=== PATIENT | female | born 1995 | race Caucasian/White ===

== ENCOUNTER 2024-02-20 10:26 | Inpatient (IN) | payer BC, SELFPAY ==
[2024-02-20] VITALS (78 sets, daily range): BP systolic 117–142; BP diastolic 61–84; PULSE 62–89; RESP 18; TEMP 36.6–37.2; O2SAT 89–100; BMI 37.0
--- NOTE | 2024-02-20 11:12 | XR_ITS ---
Examination: Complete OB ultrasound greater than 14 weeks Date and time of exam: February 20, 2024 1300 hours INDICATIONS: Pelvic contractions today, labor induction, unknown presentation Findings: Viable intrauterine single fetus with single amniotic sac presentation cephalic spine maternal left Cardiac motion 1:30 BPM Placenta posterior grade 3 Amniotic fluid index 6.2 cm Cervix 3.2 cm Right ovary obscured by bowel gas Cystic left ovary 6.2 x 4.9 cm. Composite estimated gestational age based on BPD, head circumference, abdominal circumference, femur length is 36 weeks 0 days Estimated weight 2009 or 62 g. Survey of intracranial anatomy, spinal anatomy, abdominal anatomy, four-chamber heart performed with no abnormalities identified. Impression: Viable intrauterine gestation cephalic presentation.
[2024-02-20 13:00] LABS: Basophils % (Auto) 0 % (0-2.5); Eosinophils % (Auto) 0 % (0-10); Hematocrit 37.4 % (36.0-46.0); Hemoglobin 12.7 g/dL (12.0-16.0); Immature Granulocytes % (Auto) 0 % (0-0); Immature Granulocytes Auto 0.02 Thou/mm3 (0.00-0.00); Lymphocytes # (Auto) 2.2 Thou/mm3 (1.0-4.8); Lymphocytes % (Auto) 26 % (10-50); Mean Corpuscular Hemoglobin 29.3 pg (25.0-35.0); Mean Corpuscular Volume 86 fL (80-100); Monocytes # (Auto) 0.6 Thou/mm3 (0.0-0.8); Monocytes % (Auto) 7 % (0-12); Neutrophils # (Auto) 5.5 Thou/mm3 (1.8-7.7); Neutrophils % (Auto) 66 % (37-80); Nucleated Red Blood Cell % 0 /100 WBC (0); Platelet Count 177 Thou/mm3 (140-440); RDW Standard Deviation 45.6 fL (36.4-46.3); Red Blood Count 4.33 Miln/mm3 (4.00-5.20); White Blood Count 8.3 Thou/mm3 (3.6-11.0)
[2024-02-20 13:21] LABS: Alanine Aminotransferase 20 U/L (10-49); Albumin, Serum 4.3 gm/dL (3.5-5.0); Albumin/Globulin Ratio 1.5 (1.2-2.2); Alkaline Phosphatase 146 U/L (46-116); Anion Gap 8 (7-16); Aspartate Amino Transferase 26 U/L (0-34); BUN/Creatinine Ratio 15 Ratio (12-20); Bilirubin,Total 0.4 mg/dL (0.3-1.2); Blood Urea Nitrogen 15 mg/dL (9-23); Calcium 9.7 mg/dL (8.3-10.6); Calcium (Corrected) 9.7 mg/dL (8.5-10.1); Carbon Dioxide 19.7 mMol/L (20.0-31.0); Chloride 105 mMol/L (98-107); Globulin 2.8 gm/dL (2.3-3.5); Glucose 91 mg/dL (74-106); Osmolality,Calculated 267 (275-295); Potassium 3.7 mMol/L (3.4-5.1); Sodium 133 mMol/L (136-145); Total Protein 7.1 gm/dL (5.7-8.2); Uric Acid 9.9 mg/dL (3.1-7.8); eGFR > 60 See Note
[2024-02-20 13:28] LABS: Fibrinogen 427 mg/dL (175-375); INR 0.9 (0.9-1.3); Partial Thromboplastin Time 23.1 Seconds (22.0-36.0); Prothrombin Time 10.2 Seconds (9.0-12.2)
[2024-02-20 13:38] LABS: Syphilis Nonreactive (Nonreactive)
[2024-02-20 14:23] LABS: Collection Type, Urine Clean Catch
[2024-02-20 14:37] LABS: Bacteria,Urine Rare; Bilirubin,Urine Negative (Negative); Blood,Urine Negative (Negative); Clarity,Urine Clear (Clear/Hazy); Color,Urine Lt-Yellow (Lt Yel-Yel); Glucose, Urine Negative (Negative); Ketones,Urine Negative (Negative); Leukocyte Esterase,Urine Positive (Negative); Nitrite,Urine Negative (Negative); PH,Urine 5.5 (5.0-7.0); Protein,Urine Negative (Neg - Trace); RBC,Urine 2 /hpf (0-3); Specific Gravity,Urine 1.013 (1.001-1.035); Squamous Epithelial Cell,Urine 3 /hpf (0-5); Urobilinogen,Urine Negative mg/dL (0.0-1.0); WBC,Urine 2 /hpf (0-5)
[2024-02-20] MEDS: DINOPROSTONE 10 MG VAG.SUPP VAGINAL (14:39)
--- NOTE | 2024-02-20 17:59 | PD.LDHP ---
Documentation for date of: 02/20/24 OB Labor/Induct. HPI History of Present Illness Chief complaint: induction : 1 Para: 0 Term pregnancies: 1 pregnancies: 0 Living children: 0 History of Abortions: Spontaneous and Elective: 0 History of Vaginal deliveries: 0 History of sections: No History of : No Date of last menstrual period: 05/20/23 ELIF: 02/24/24 Gestational Age (weeks): 39 Gestational Age (days): 3 Gestational age based on last menstrual period: 39 Indication for induction: medical complication (GDM on diet, CHTN and large ovarian cyst) History of present illness: 28 yo g1po at 39w3 admit for induction of labor. lmp 05/20/23. EDC 02/24/24, followed at [facility] for OB care, first visit was at 10 week 5. first ob sono was 10/07/23, 20 week. confirmed dates. noted to have large ovarian mass, 6.8x4.2 cm, patient was rerered to Dr Prado and oncology in [place]. Malignancy markers were negative. patient showed normal growth. 1 hr gtt was elevated along with 3 hr gtt. sugars have been at goal, diet only, BP have been elevate, OB felt patient was CHTN and not started on medication. Patient is AB+, abs-, rpr;;nr, rub imm, hbsag-, HIV-, hepatitis C-, GC/CT - and gbs negative History of Present Dating criteria: LMP confirmed by 2nd trimester US Adequate Care: Yes Ultrasounds: normal 1st trimester US and normal mid trimester US Obstetrical complications: gestational diabetes and gestational hypertension Medical complications: none Review of Systems Review of Systems Systems Reviewed: All systems reviewed, normal except as documented Past Medical History Surgical History SURGICAL: Negative Section Meds Home Medications and Allergies Allergies Allergy/AdvReac Type Severity Reaction Status Date / Time No Known Allergies Allergy Verified 02/06/24 17:54 OB Exam Physical Exam Vital signs: Temp Pulse Resp BP Pulse Ox 99.0 F 64 18 142/76 H 99 02/20/24 11:20 02/20/24 17:49 02/20/24 11:20 02/20/24 17:49 02/20/24 17:48 Narrative: normal heart rate, lungs closed, gravid abdomen, gynecoid pelvis, sve: FTP/high, medium. BOW intact, FHR category 1 with accels and moderate variability, no UC Detailed Labor and Delivery Exam Dilation (cm): ftp Effacement (%): thick Cervix position: posterior station: -3 Consistency: medium Presentation: Vertex Cervical ripeness score: 2 Membranes: intact Baseline heart rate: 125 monitor accelerations: 15x15 monitor decelerations: None senior living variability: Moderate (11-25) Contraction frequency (min): none Tachysystole: No OB Results Labs 02/20/24 12:36 02/20/24 12:36 Labs: Short CBC 02/20/24 Range/Units 12:36 WBC 8.3 (3.6-11.0) Thou/mm3 Hgb 12.7 (12.0-16.0) g/dL Hct 37.4 (36.0-46.0) % Plt Count 177 (140-440) Thou/mm3 BMP 02/20/24 12:36 Sodium 133 L Potassium 3.7 Chloride 105 Carbon Dioxide 19.7 L BUN 15 Creatinine 1.0 Glucose 91 Calcium 9.7 Liver Function 02/20/24 Range/Units 12:36 Total Bilirubin 0.4 (0.3-1.2) mg/dL AST 26 (0-34) U/L ALT 20 (10-49) U/L Alkaline Phosphatase 146 H (46-116) U/L Albumin 4.3 (3.5-5.0) gm/dL Urine 02/20/24 Range/Units 12:36 Urine Color Lt-Yellow (Lt Yel-Yel) Urine Clarity Clear (Clear/Hazy) Urine pH 5.5 (5.0-7.0) Ur Specific [place] 1.013 (1.001-1.035) Urine Protein Negative (Neg - Trace) Urine Glucose (UA) Negative (Negative) Impressions Impression: IOL for GDM diet and CHTN OB Assessment & Plan Assessment and Plan (1) Normal labor and delivery: Status: Acute Additional Plan Induction method: per misoprostol protocol Plan: induction, anticipate NVD and consult MD grant
[2024-02-21] VITALS (38 sets, daily range): BP systolic 115–146; BP diastolic 59–87; PULSE 53–86; RESP 15–16; TEMP 36.8–37.1
[2024-02-21] MEDS: MISOPROSTOL 50 mCg TABLET PO ×4 (05:48→19:53)
--- NOTE | 2024-02-21 07:35 | PD.LDPN ---
Documentation for date of: 02/21/24 OB Labor Progress Note Pain Control Pain control: tolerating well Pelvic Exam Dilation (cm): 2-3 Effacement (%): 70 station: -2 Amniotic membrane status: Intact Contractions Monitor mode: External Contraction frequency: 6 Contraction duration: 40 Contraction phase: Resting Contraction intensity: Mild Status status: Category l Assessment and Plan Assessment: induction ongoing Plan OB labor note: continuous present management CNM Management MD Consulted (describe details below): Yes
--- NOTE | 2024-02-21 07:48 | XR_ITS ---
Examination: Complete OB ultrasound greater than 14 weeks Date and time of exam: February 21, 2024 0834 hours INDICATIONS: Onset vaginal bleeding beginning this morning Findings: Viable intrauterine single fetus with single amniotic sac presentation cephalic Cardiac motion 144 BPM Placenta fundal grade 3 Umbilical cord insertion seen Amniotic fluid index 1.8 cm spine maternal left Cervix 3.4 cm Ovaries obscured by bowel gas. Composite estimated gestational age based on BPD, head circumference, abdominal circumference, femur length is 39 weeks 0 days Estimated weight 3646 g. Survey of intracranial anatomy, spinal anatomy, abdominal anatomy, four-chamber heart performed with no abnormalities identified. Impression: Viable intrauterine gestation cephalic presentation Estimated gestational age 39 weeks 0 days Amniotic fluid index 1.8 cm.
--- NOTE | 2024-02-21 09:18 | CHAP ---
Patient expressed gratitude for visit and prayer.
[2024-02-22] VITALS (25 sets, daily range): BP systolic 115–137; BP diastolic 64–85; PULSE 52–82; RESP 18; TEMP 36.6–37; O2SAT 100; BMI 37.0
[2024-02-22] MEDS: Ampicillin Inj 2,000 MG in SODIUM CHLORIDE 0.9% (P) 100 ML 100 MG IV (02:22)
[2024-02-22] MEDS: RINGERS LACTATED 1000 ML 1,000 ML 125 ML IV ×3 (02:22→17:52)
[2024-02-22] MEDS: OXYTOCIN in NS 30 units 30 UNIT/500 ML BAG IV (02:23)
[2024-02-22] MEDS: Ampicillin Inj 1,000 MG in SODIUM CHLORIDE 0.9% (P) 50 ML 50 MG IV ×4 (06:29→19:13)
--- NOTE | 2024-02-22 16:50 | PD.LDPN ---
Documentation for date of: 02/22/24 OB Labor Progress Note Pain Control Pain control: tolerating well Pelvic Exam Dilation (cm): 3 Effacement (%): 80 station: -2 Amniotic membrane status: Intact Contractions Monitor mode: External Contraction frequency: 6 Contraction duration: 60 Contraction phase: Resting Contraction intensity: Mild Status status: Category l Assessment and Plan Pitocin rate (mU/min): 13 CNM Management MD Consulted (describe details below): Yes
[2024-02-23] VITALS (30 sets, daily range): BP systolic 106–144; BP diastolic 55–100; PULSE 58–112; RESP 7–19; TEMP 36.6–37.1; O2SAT 93–100
[2024-02-23] MEDS: Ampicillin Inj 1,000 MG in SODIUM CHLORIDE 0.9% (P) 50 ML 50 MG IV (00:39)
--- NOTE | 2024-02-23 03:36 | PC.NURSE ---
1920: During my initial encounter with patient, casualty underwriter was explaining expectations of labor, pain control options, poc to increase oxytocin to 20 mu/min, pt was currently on 18mu. After reaching 20 mu/min, casualty underwriter would monitor for few hrs poss. [id number], recheck sve. If no cervical change noted, poss. of oxytocin break a few hrs and restarting in the morning. Pt verbalized understanding. Pt, spouse and mother at bedside, explained to casualty underwriter that she was not agreeable to this induction initially, but d/t Dr Clifford being adament in doing it, they agreed to come in. Pt stated she felt like alot of things have gone wrong since induction started. explained to casualty underwriter that since arrival, a nurse strippped her membranes without consent, after cervidil placement, she was celeste every minute with increased of pain and increased of mucous discharge and vaginal bleeding. Cooker Mechanic explained to patient and family the expectations of labor w/ ripening agents vs. stimulants, increase of bloody show as she progresses in labor, cervical exams, and D/T co-morbidities noted with - GDM, GHTN is prob. the reason why the provider recommended IOL. Pt questions whether a poss. of stopping induction, delaying it was an option. Cooker Mechanic explained that when there are on sign. pt. hx, sometimes failed inductions go home and come back in a few days, but d/t to her hx. that might not be an option. That is something she would have to speak to with her providers. Pt and family verbalized understanding.
--- NOTE | 2024-02-23 03:55 | PC.NURSE ---
2005: Pt. aware that show card writer reached out to Dr Hernandez, he was made aware of POC and orders by CHAO Farooq and agreeable to poc, but requested for NPO at midnight. D/T low GARFIELD, pt to remain on cont. F.M. and fluids. Pt and spouse concerned about bloody show. Pt noted small amount of blood show with mucous discharge. all questions and concerns answered, Pt and family agreeable with POC.
[2024-02-23] MEDS: ceFAZolin/D5W 2 GM IV 2 GM/100 ML BAG IV (08:06)
[2024-02-23] MEDS: METOCLOPRAMIDE INJ 5 MG/ML VIAL 2 ML 10 MG IVP (08:07)
[2024-02-23] MEDS: FAMOTIDINE INJ 10 MG/ML VIAL 2 ML 20 MG IV (08:07)
[2024-02-23] MEDS: CITRIC ACID/SODIUM CITR 15 ML UDC (BICITRA) 30 ML PO (08:07)
--- NOTE | 2024-02-23 08:26 | PD.LDPN ---
Documentation for date of: 02/23/24 OB Labor Progress Note Pelvic Exam Dilation (cm): 3 Effacement (%): 80 station: -2 Amniotic membrane status: Intact Contractions Monitor mode: External Contraction frequency: 6 Contraction phase: Resting Contraction intensity: Mild Status status: Category l Assessment and Plan Comments: I was given a signout from the previous on-call physician that patient desires primary low-transverse . On conversation with the patient I confirmed her desire. Patient is being induced for gestational hypertension and GDM diet-controlled and has been here for 48 hours showed no significant cervical change after 1 round of Cytotec, Cervidil, Pitocin patient has a plan and patient has been demanding to have Pitocin run at the base she wants and she did not want to have amniotomy. patient declines to get any neuraxial anesthesia and would rather prefer to be under general anesthesia. Patient already had a conversation with pediatric team regarding what are the consequences of general anesthesia for the baby and still requests for the same. Patient during her exam at 20 weeks was discovered to have a large ovarian cyst around 6 to 7 cm which was complex and got consultation with SIGN HANGER SUPERVISOR oncology. Tumor markers were done which were negative and per her SIGN HANGER SUPERVISOR oncology note mass is more likely benign and malignant. Patient desires removal of the mass. I mentioned the patient that cystectomy rather than oophorectomy as a standard of care however if pathology confirms any malignancy she will need a second surgery and patient is agreeable to the same. Also in case of injury to the ovary oophorectomy is a possibility patient was also informed that in case the ovarian cyst has shrunk then it can be done after 6 weeks where vascularity has decreased. Patient appears to understand the conversation and risks of including infection, hemorrhage, injury to neighboring organ. Patient desires transverse incision and understands that extension might be possible in case of large ovarian cyst
[2024-02-23] MEDS: OXYTOCIN in NS 20 units 20 UNIT/1,000 ML BAG 125 UNIT IV ×2 (09:35→17:47)
[2024-02-23] MEDS: MORPHINE SULF 1 MG/ML PCA SYRINGE 30 ML PCA (12:27)
[2024-02-23 13:18] LABS: Basophils % (Auto) 0 % (0-2.5); Eosinophils % (Auto) 0 % (0-10); Hematocrit 31.8 % (36.0-46.0); Hemoglobin 10.8 g/dL (12.0-16.0); Immature Granulocytes % (Auto) 0 % (0-0); Immature Granulocytes Auto 0.03 Thou/mm3 (0.00-0.00); Lymphocytes # (Auto) 1.6 Thou/mm3 (1.0-4.8); Lymphocytes % (Auto) 16 % (10-50); Mean Corpuscular Hemoglobin 29.8 pg (25.0-35.0); Mean Corpuscular Volume 88 fL (80-100); Monocytes # (Auto) 0.6 Thou/mm3 (0.0-0.8); Monocytes % (Auto) 6 % (0-12); Neutrophils # (Auto) 7.9 Thou/mm3 (1.8-7.7); Neutrophils % (Auto) 77 % (37-80); Nucleated Red Blood Cell % 0 /100 WBC (0); Platelet Count 167 Thou/mm3 (140-440); Red Blood Count 3.63 Miln/mm3 (4.00-5.20); White Blood Count 10.2 Thou/mm3 (3.6-11.0)
--- NOTE | 2024-02-23 16:47 | PD.LDDELS ---
Data ([place]) Data Hx Section: No : 1 Para: 0 Term: 0 : 0 : 0 Delivery Data (Moore) Labor Data Induction: Yes ROM Date: 02/23/24 ROM Time: 08:44 Rupture Type: AROM Amniotic Fluid: Clear Delivery Data Labor Onset Stage 1 Date: 02/23/24 Labor Onset Stage 1 Time: 08:47 Labor Onset Stage 2 Date: 02/23/24 Labor Onset Stage 2 Time: 08:47 Delivery Date: 02/23/24 Delivery Time: 08:47 Gestational age (weeks): 39 Gestational age (days): 4 Placenta Delivery Date: 02/23/24 Placenta Delivery Time: 08:48 Delivered by: Florina Clifford Delivery nurse: Genevieve Schumacher Other staff at delivery: Nursery Nurse Other staff at delivery: Scrub Other staff at delivery: Baby Care/Riveting Machine Operator Tape Control Other staff at delivery: Luly Sepulveda Other staff at delivery: Lela Pederson Other staff at delivery: Delivery Method Delivery: Delivery Type: Primary Anesthesia Type Primary Anesthesia: General Secondary Anesthesia: None Delivery Room Medications Intrapartum Medications: Antibiotics Placenta Placenta Delivery: Manual EBL Estimated blood loss (ml): 400 Umbilical Cord Umbilical Vessels: 3 Nuchal Cord: None Body Cord: None [place] Data ([place]ore) Data Infant Gender: Female Infant Weight Grams: 3390 1 Minute Total: 9 5 Minute Total: 9
--- NOTE | 2024-02-23 16:49 | PD.GYNPROC ---
Operative Note - NIGHT SUPERVISOR Procedure Date of procedure: 02/23/24 Procedure Performed: Primary low-transverse for patient desires Gestational hypertension Gestational diabetes diet-controlled Indication: Elective Pre-Op diagnosis: Same Post-Op diagnosis: Same Anesthesia type: General Procedure description: informed consent was obtained and the patient was taken to the operating room.? Identity was confirmed by double identifiers and she was placed on the operating table.The abdomen and perineum were prepped in the usual sterile fashion and a Piña catheter was placed to continuous drainage.? Sterile drapes were applied.??A Pfannenstiel skin incision was made with a scalpel and carried to the subcutaneous fat up to the rectus fascia.? The rectus fascia was incised on either side of the midline and the incisions were extended bilaterally.? The fascia was gently dissected off the ventral surface of the rectus muscle both superiorly and inferiorly. Carefully a peritioneal window created and after ruling out adhesion of bowel and bladder it was extended . The baby was cephalic position stuck deep in pelvis, during extraction of head from the pelvis the baby turned and therefore was delivered via breech extraction. The umbilical cord , was doubly clamped, divided and the was handed over to the waiting team.cord blood and segment obtained. ? placenta delivered by controlled cord traction . The interior of the uterus was now thorougly cleaned of all blood and debris and membranes.? The? hysterotomy was closed using 0 vicryl suture in double layers. Once the repair was completed the hysterotomy was inspected, was noted to be adequately hemostatic . Muscle oozing stopped by bovie. The rectus fascia was repaired using Vicry 0 in a running fashion.? The subcutaneous layer was now, approximated with 3-0 vicryl in double layers.? All bleeding points were cauterized using the Bovie.?The skin was closed using 4-0 Monocryl in a subcuticular fashion.? The skin was cleaned and a sterile dressing was applied. The patient was now undraped, the abdomen and back were thoroughly cleaned and she was now transferred to the recovery room in a stable Estimated blood loss (ml): 400 Surgical staff Operation Date: 02/23/24 08:41 Case Staff NURSE ANESTHESIA PROGRAM DIRECTOR: Osiel Love RN First Assistant: Lela Pederson Diagnosis Problem List Completed Was Problem List Reviewed/Reconciled?: Yes
--- NOTE | 2024-02-23 16:50 | PD.LDDELS ---
Data ([place]) Data Hx Section: No : 1 Para: 0 Term: 0 : 0 : 0 Delivery Data ([place]ore) Labor Data Induction: Yes ROM Date: 02/23/24 ROM Time: 08:44 Rupture Type: AROM Amniotic Fluid: Clear Delivery Data Labor Onset Stage 1 Date: 02/23/24 Labor Onset Stage 1 Time: 08:47 Labor Onset Stage 2 Date: 02/23/24 Labor Onset Stage 2 Time: 08:47 Delivery Date: 02/23/24 Delivery Time: 08:47 Gestational age (weeks): 39 Gestational age (days): 4 Placenta Delivery Date: 02/23/24 Placenta Delivery Time: 08:48 Delivered by: Florina Clifford Delivery nurse: Genevieve Schumacher Other staff at delivery: Nursery Nurse Other staff at delivery: Scrub Other staff at delivery: Baby Care/Vp Cardiovascular Service Line Other staff at delivery: Luly Sepulveda Other staff at delivery: Lela Pederson Other staff at delivery: Delivery Method Delivery: Delivery Type: Primary Anesthesia Type Primary Anesthesia: General Secondary Anesthesia: None Delivery Room Medications Intrapartum Medications: Antibiotics Placenta Placenta Delivery: Manual EBL Estimated blood loss (ml): 400 Umbilical Cord Umbilical Vessels: 3 Nuchal Cord: None Body Cord: None [place] Data ([facility]) Data Infant Gender: Female Infant Weight Grams: 3390 1 Minute Total: 9 5 Minute Total: 9
[2024-02-24] VITALS (7 sets, daily range): BP systolic 119–136; BP diastolic 79–88; PULSE 70–86; RESP 16–19; TEMP 36.7–37.6; O2SAT 95–98
[2024-02-24] MEDS: ACETAMINOPHEN 325 MG TABLET 650 MG PO (05:18)
--- NOTE | 2024-02-24 10:08 | PD.LDPPPRG ---
Subjective Subjective Interval history: Delivery type: Patient doing well this morning. No acute complaints. Ambulating, tolerating p.o. and voiding without difficulty. HTN/Pre-Eclampsia screen: No chest pain, shortness of breath, headache, visual changes, epigastric or right upper quadrant pain. Breast-feeding, lochia diminishing. Bowel: Flatus+/ BM+ Exam Vital Signs Temp Pulse Resp BP Pulse Ox O2 Del Method O2 Flow Rate 98.4 F 73 16 119/79 95 Room Air 1 02/24/24 07:39 02/24/24 07:39 02/24/24 07:39 02/24/24 07:39 02/24/24 07:39 02/24/24 07:39 02/23/24 20:35 Constitutional Constitutional: no acute distress Routine HEENT Exam Head: Present normocephalic and atraumatic Eye: Present EOMI and PERRL ENT: Present mucous membranes moist Routine Neck Exam Neck: Present supple and trachea midline Routine Respiratory Exam Respiratory: Present chest non-tender, lungs clear, normal breath sounds and no resp distress Routine Cardiovascular Exam Cardiovascular: Present RRR Routine Abdominal Exam Abdominal: Present soft and normoactive bowel sounds Routine Extremities Exam Extremities: Present full ROM Routine Skin Exam Skin: Present intact, dry and warm Routine Neurological Exam Neurological: Present alert, oriented X3 and CN II-XII intact Routine Psychiatric Exam Psychiatric: Present normal affect and normal thought process Objective Labs 02/23/24 13:00 02/20/24 12:36 Labs: Laboratory Results - last 24 hr 02/23/24 13:00 WBC 10.2 RBC 3.63 L Hgb 10.8 L Hct 31.8 L MCV 88 MCH 29.8 MCHC 34.0 RDW Std Deviation 47.0 H Plt Count 167 Neut % (Auto) 77 Lymph % (Auto) 16 [place] % (Auto) 6 Eos % (Auto) 0 Baso % (Auto) 0 Neut # (Auto) 7.9 H Lymph # (Auto) 1.6 [place] # (Auto) 0.6 Eos # (Auto) 0.0 Baso # (Auto) 0.0 Immature Gran # (Auto) 0.03 H Absolute Nucleated RBC 0.00 Immature Gran % 0 Nucleated RBC % 0 Assessment & Plan Problem List (1) Normal labor and delivery: Status: Acute (2) delivery delivered: Status: Acute Assessment and plan: 1. Continue routine /post-op care 2. Labs reviewed, cbc appropriate 3. Remove dressing/Piña 4. Encourage to ambulate, shower 5. Encourage PO intake, breast feeding Time Spent With Patient Time: Total time spent is greater than 50% in coordination of care (as documented) at patient's floor/unit and/or counseling patient:
[2024-02-24] MEDS: IBUPROFEN TAB 400 MG TABLET 800 MG PO (12:17)
--- NOTE | 2024-02-24 14:34 | PC.SS ---
SIGNAL SYSTEM TESTING MAINTAINER conducted bedside contact with the patient to address nursing referral indicating patient possessed history of anxiety. SIGNAL SYSTEM TESTING MAINTAINER introduced self, role and basis of referral. Present with patient at bedsides was patient?s mother. Patient gave permission for mother to remain during discussion. Patient confirmed history of anxiety. Per patient, level of anxiety is not impairing daily functioning. Patient not prescribed medication to address level of anxiety. Patient reports no history of mental health services. Patient employed multimedia programmer. Patient resides with [facility]. [place], Ewelina; is the patient?s first child. delivered via . OB services provided by Dr. Clifford. Patient not aligned with WIC, SNAP nor TANF. Patient denies history of alcohol/drug abuse. Patient denies CWS intervention. Patient denies episodes of domestic violence. Patient plans on breast feeding the . Patient has access to appropriate supplies and equipment; to include a car seat. FOB will provide transportation upon discharge. Patient describes possessing support system consisting of parents and extended family. SIGNAL SYSTEM TESTING MAINTAINER provided the patient with community resources to include [facility]ing Network and Warm Line. No further intervention required at this time, social media marketing analyst will be available to address any further concerns. SIGNAL SYSTEM TESTING MAINTAINER updated bedside nurse.
[2024-02-25] MEDS: ACETAMINOPHEN 325 MG TABLET 650 MG PO ×2 (00:48→08:19)
[2024-02-25 03:57] VITALS: BP 131/84; PULSE 63; RESP 20; TEMP 36.7; O2SAT 98
[2024-02-25 08:01] VITALS: BP 143/95; PULSE 69; RESP 16; TEMP 36.8; O2SAT 98
[2024-02-25 08:19] VITALS: TEMP 36.8
--- NOTE | 2024-02-25 09:04 | PD.LDPPPRG ---
Subjective Subjective Interval history: Patient at bedside. Afebrile, tolerating p.o., ambulating, voiding, positive bowel movements Denies headache, vision changes, right upper quadrant or epigastric pain Exam Vital Signs Temp Pulse Resp BP Pulse Ox O2 Del Method O2 Flow Rate 98.3 F 69 16 143/95 H 98 Room Air 1 02/25/24 08:19 02/25/24 08:01 02/25/24 08:01 02/25/24 08:01 02/25/24 08:01 02/25/24 08:01 02/23/24 20:35 Routine Abdominal Exam Comments: Soft, appropriate tender. Uterus firm, below the umbilicus. Incision clean, dry, intact Routine Exam Comments: Lochia similar to menses Routine Extremities Exam Comments: Homans' sign negative Objective Labs 02/23/24 13:00 02/20/24 12:36 Assessment & Plan Problem List (1) Normal labor and delivery: Status: Acute (2) delivery delivered: Status: Acute Assessment Comment Assessment comment: 28-year-old status post primary at term. History of gestational hypertension, blood pressures in the mild to normal range. Denies preeclamptic symptoms. Postop day 2 Plan Comment Plan Comment: Routine care. DC home if stable Time Spent With Patient Time: Total time spent is greater than 50% in coordination of care (as documented) at patient's floor/unit and/or counseling patient:
--- NOTE | 2024-02-25 09:06 | PD.LDDS ---
DS: Providers Provider Date of admission: 02/20/24 10:26 Primary care physician: Physician No Primary/Family Admitting Provider: Alessandro Hernandez MD Attending Provider on Admission: Guerrero Marshall MD Consults: 02/23/24 08:32 Referral Routine Comment: Attending Provider on DC: Alessandro Hernandez MD Discharging Provider: Alessandro Hernandez MD DS: Diagnosis Problem List Completed Was Problem List Reviewed/Reconciled?: Yes Summary/Hosp Course Brief History: 28 yo in for induction of labor due to gestational hypertension and had primary at term. Her postop course was unremarkable and on postop day 2 she was discharged home Peripartum Data Delivery Method: Low Transverse Procedures: Procedures Operation Date: 02/23/24 08:41 Actual Procedure Side Surgeon p in OB Not Applicable Florina Clifford MD Time Spent with Patient Time attestation: Total time spent providing and/or coordinating discharge services: Exam Vital Signs Temp Pulse Resp BP Pulse Ox O2 Del Method O2 Flow Rate 98.3 F 69 16 143/95 H 98 Room Air 1 02/25/24 08:19 02/25/24 08:01 02/25/24 08:01 02/25/24 08:01 02/25/24 08:01 02/25/24 08:01 02/23/24 20:35 Discharge Plan Plan Patient Disposition: HOME (Self Care) Prescriptions/Referrals Prescriptions/Med Rec: New acetaminophen 325 mg Tablet 650 mg PO Q6H 7 Days Qty: 56 0RF ibuprofen 400 mg Tablet 800 mg PO Q8H 7 Days Qty: 21 0RF Discontinued aspirin [Thelma Low Dose Aspirin] 81 mg Tablet,Delayed Release (Dr/Ec) 81 mg PO DAILY Referrals: Florina Clifford MD [Physician] - (1 week) No Primary/Family,Physician [Primary Care Provider] - Patient/Caregiver Discharge Instructions Education Materials: C Section Dc Print Language: Kinyarwanda Stand Alone Forms: Kassie Award Info., Patient Portal Info Letter Discharge Order Discharge Orders: Discharge (Routine); Ordered 02/25/24 Ordered By: Alessandro Hernandez Planned Discharge Date 02/25/24
[2024-02-25 10:31] VITALS: BP 139/94; PULSE 65; RESP 17; TEMP 36.8; O2SAT 98
--- NOTE | 2024-02-25 10:34 | PD.LDDS ---
DS: Providers Provider Date of admission: 02/20/24 10:26 Primary care physician: Physician No Primary/Family Admitting Provider: Alessandro Hernandez MD Attending Provider on Admission: Guerrero Marshall MD Consults: 02/23/24 08:32 Referral Routine Comment: Attending Provider on DC: Alessandro Hernandez MD Discharging Provider: Alessandro Hernandez MD DS: Diagnosis Problem List Completed Was Problem List Reviewed/Reconciled?: Yes Summary/Hosp Course Brief History: 28 yo in for induction of labor due to gestational hypertension and had primary at term. Her postop course was unremarkable and on postop day 2 she was discharged home Peripartum Data Delivery Method: Low Transverse Procedures: Procedures Operation Date: 02/23/24 08:41 Actual Procedure Side Surgeon p in OB Not Applicable Florina Clifford MD Time Spent with Patient Time attestation: Total time spent providing and/or coordinating discharge services: Exam Vital Signs Temp Pulse Resp BP Pulse Ox O2 Del Method O2 Flow Rate 98.3 F 65 17 139/94 H 98 Room Air 1 02/25/24 10:31 02/25/24 10:31 02/25/24 10:31 02/25/24 10:31 02/25/24 10:31 02/25/24 10:31 02/23/24 20:35 Discharge Plan Plan Patient Disposition: HOME (Self Care) Prescriptions/Referrals Prescriptions/Med Rec: New acetaminophen 325 mg Tablet 650 mg PO Q6H 7 Days Qty: 56 0RF ibuprofen 400 mg Tablet 800 mg PO Q8H 7 Days Qty: 21 0RF nifedipine 30 mg Tablet Extended Release 24hr 30 mg PO QDAY 30 Days Qty: 30 0RF Discontinued aspirin [Thelma Low Dose Aspirin] 81 mg Tablet,Delayed Release (Dr/Ec) 81 mg PO DAILY Referrals: Florina Clifford MD [Physician] - (1 week) No Primary/Family,Physician [Primary Care Provider] - Patient/Caregiver Discharge Instructions Education Materials: C Section Dc Print Language: Occitan Stand Alone Forms: Kassie Award Info., Patient Portal Info Letter Discharge Order Discharge Orders: Discharge (Routine); Ordered 02/25/24 Ordered By: Alessandro Hernandez Planned Discharge Date 02/25/24
[2024-02-25 11:02] VITALS: BP 139/94; PULSE 65
[2024-02-25] MEDS: NIFEdipine XL 30 MG TABCR PO (11:02)
--- NOTE | 2024-02-25 12:18 | PC.NURSE ---
Patient discharged home with spouse, discharge education and medications for mom and reviewed. Precautions explained to patient including reasons to return to hospital. Patient instructed to follow up with OB at next scheduled appt next week for b/p check up. Patient verbalizes understanding, all questions answered and encouraged.
== END 2024-02-25 12:10 | disposition home or self-care (01) | DRG 788 ==
LOC: S4SX 02-23 08:26 → S4NX 02-23 08:50
PROVIDERS: Advanced Practice Midwife; Student in an Organized Health Care Education/Training Program; Admitting Provider Obstetrics & Gynecology; Visit Provider Obstetrics & Gynecology
PROC: 10D00Z1 Extraction of Products of Conception, Low, Open Approach (ICD-10-PCS; CPT 59514; principal; 2024-02-23 08:00)
DX: O13.4 Gestational [pregnancy-induced] hypertension without significant proteinuria, complicating childbirth (principal); Z37.0 Single live birth; Z3A.39 39 weeks gestation of pregnancy; O32.1XX0 Maternal care for breech presentation, not applicable or unspecified; O34.83 Maternal care for other abnormalities of pelvic organs, third trimester; N83.202 Unspecified ovarian cyst, left side
CPT/HCPCS: 36415; 59409; 76805; 80053; 81001; 84550; 85025; 85384; 85610; 85730; 86780; 86850; 86900; 86901; 94762; A4649; J0290; J0689; J1885; J2250; J2270; J2405; J2590; J2704; J2765; J3010; J3490; J7050; J7120; A9270; J0690; J1596

== ENCOUNTER 2024-04-04 10:57 | Emergency (ER) | payer BC, SELFPAY ==
[2024-04-04 12:46] VITALS: BP 133/78; PULSE 122; RESP 18; TEMP 38.9; O2SAT 99; BMI 33.1
--- NOTE | 2024-04-04 12:49 | PD.EDRME ---
Rapid Medical Screening Exam RME Arrival date/time: 04/04/24 10:57 Chief Complaint: Urogenital-Female Time Seen by Provider: 04/04/24 11:59 Vital signs: Vital Signs Temperature 102.1 F H 04/04/24 12:46 Pulse Rate 122 H 04/04/24 12:46 Respiratory Rate 18 04/04/24 12:46 Blood Pressure 133/78 H 04/04/24 12:46 Pulse Oximetry (%) 99 04/04/24 12:46 Oxygen Delivery Method Room Air 04/04/24 12:46 RME Narrative: 29-year-old female patient presents emergency department with complaint of fever, pain with urination, x 2 days. Patient also states that she is 5 weeks via delivery. Patient is febrile and tachycardic.
--- NOTE | 2024-04-04 12:51 | XR_ITS ---
Examination: PA lateral chest 2 views Technique: Upright PA lateral chest 2 views Exam date and time: April 04, 2024 1306 hrs. Indications: Fever pain with urination beginning 2 days ago Findings: Normal heart size No lobar pneumonia No pulmonary edema The osseous structures are intact with mild kyphosis dorsal spine Impression: No lobar pneumonia identified
[2024-04-04 12:57] VITALS: TEMP 38.9
[2024-04-04] MEDS: ACETAMINOPHEN 500 MG TABLET 1000 MG PO (12:57)
[2024-04-04 13:31] LABS: Lactate (Lactic Acid) 0.8 mMol/L (0.4-2.0)
[2024-04-04 13:34] LABS: Basophils % (Auto) 0 % (0-2.5); Eosinophils % (Auto) 0 % (0-10); Hematocrit 37.4 % (36.0-46.0); Hemoglobin 12.3 g/dL (12.0-16.0); Immature Granulocytes % (Auto) 0 % (0-0); Immature Granulocytes Auto 0.01 Thou/mm3 (0.00-0.00); Lymphocytes # (Auto) 1.6 Thou/mm3 (1.0-4.8); Lymphocytes % (Auto) 18 % (10-50); Mean Corpuscular HGB Conc 32.9 g/dl (31.0-37.0); Mean Corpuscular Volume 88 fL (80-100); Monocytes # (Auto) 0.4 Thou/mm3 (0.0-0.8); Monocytes % (Auto) 5 % (0-12); Neutrophils % (Auto) 78 % (37-80); Nucleated Red Blood Cell % 0 /100 WBC (0); Platelet Count 214 Thou/mm3 (140-440); Red Blood Count 4.24 Miln/mm3 (4.00-5.20); White Blood Count 9.1 Thou/mm3 (3.6-11.0)
[2024-04-04 13:52] LABS: B-Type Natriuretic Peptide 27 pg/mL (0-100)
[2024-04-04 13:53] LABS: Alanine Aminotransferase 35 U/L (10-49); Albumin, Serum 4.7 gm/dL (3.5-5.0); Albumin/Globulin Ratio 1.9 (1.2-2.2); Alkaline Phosphatase 85 U/L (46-116); Anion Gap 11 (7-16); Aspartate Amino Transferase 24 U/L (0-34); BUN/Creatinine Ratio 10 Ratio (12-20); Bilirubin,Total 0.4 mg/dL (0.3-1.2); Blood Urea Nitrogen 9 mg/dL (9-23); Calcium 9.1 mg/dL (8.3-10.6); Calcium (Corrected) 9.1 mg/dL (8.5-10.1); Carbon Dioxide 23.5 mMol/L (20.0-31.0); Chloride 103 mMol/L (98-107); Creatinine (Component) 0.9 mg/dL (0.6-1.3); Estimated Creatinine Clearance 96.9 mL/min (>60); Globulin 2.5 gm/dL (2.3-3.5); Glucose 139 mg/dL (74-106); Lipase 29 U/L (12-53); Osmolality,Calculated 274 (275-295); Potassium 3.4 mMol/L (3.4-5.1); Sodium 137 mMol/L (136-145); Total Protein 7.2 gm/dL (5.7-8.2); eGFR > 60 See Note
[2024-04-04 15:09] VITALS: BP 110/65; PULSE 83; RESP 16; TEMP 37.2; O2SAT 98
[2024-04-04 15:20] LABS: Collection Type, Urine Clean Catch; RBC,Urine 0 /hpf (0-3)
--- NOTE | 2024-04-04 15:32 | EDNOTE_ITS ---
ED Female Urogenital RME/HPI General Chief complaint: Urogenital-Female Stated complaint: SMELLY URINARY DISCHARGE POST C-SECT X 5WKS Time Seen by Provider: 04/04/24 11:59 Arrival date/time: 04/04/24 10:57 This is a 29-year-old female that comes in with complaints of runny nose, body aches and fever that started 3 days ago. Patient reports that she had a C- section on 02/23/2024. Per patient everything went well. Incision appears to be healing with no issues. Patient reports some lower abdominal cramping but does not have any abdominal pain or lower pelvic pain. Patient states that she has mild mucousy discharge but no pain. Patient's [facility] was . Patient denies urinary symptoms. Patient denies for nausea, vomiting, diarrhea. Patient reports history of gestational diabetes. RME / HPI RME / HPI Narrative: 29-year-old female patient presents emergency department with complaint of fever, pain with urination, x 2 days. Patient also states that she is 5 weeks via delivery. Patient is febrile and tachycardic. Related Data Allergies Allergy/AdvReac Type Severity Reaction Status Date / Time No Known Allergies Allergy Verified 04/04/24 10:59 Review of Systems Review of Systems Systems Reviewed: All systems reviewed, normal except as documented Past Medical History Surgical History SURGICAL: Negative Section ED Exam General General appearance: Present alert and in no apparent distress Head Head exam: Present atraumatic Eye Eye exam: Present normal appearance, PERRL and EOMI ENT ENT exam: Present normal exam, normal oropharynx and mucous membranes moist Neck Neck exam: Present normal inspection, full ROM and trachea midline Chest Chest inspection: Present normal inspection and symmetric chest wall rise Respiratory Respiratory exam: Present normal lung sounds bilaterally Cardiovascular Cardiovascular exam: Present regular rate, normal rhythm and normal heart sounds Abdominal Exam Abdominal exam: Present soft Extremities Exam Extremities exam: Present normal inspection and full ROM Back Exam Back exam: Present normal inspection and full ROM Neurological Exam Neurological exam: Present alert, oriented X3 and CN II-XII intact Psychiatric Psychiatric exam: Present normal affect and normal mood Skin Skin exam: Present warm, dry, intact and other (c section scar healing well, no drainage, redness or swelling ) Course Quality Measures none Orders Category Date Time Status Bedside COVID-19 Antigen Test NOW Care 04/04/24 12:51 Completed Bedside Influenza A&B Antigen Test NOW Care 04/04/24 12:52 Completed XR chest 2V Stat Exams 04/04/24 12:51 Completed BNP [B-Type Natriuretic Peptide] Stat Lab 04/04/24 13:21 Completed Blood Culture (Lab) Stat Lab 04/04/24 13:21 Completed CBC [CBC] Stat Lab 04/04/24 13:21 Completed CMP [Comprehensive Metabolic Panel] Stat Lab 04/04/24 13:21 Completed Lactic Acid [Lactate (Lactic Acid)] Stat Lab 04/04/24 13:21 Completed Lipase Stat Lab 04/04/24 13:21 Completed Urinalysis Stat Lab 04/04/24 15:12 Completed Urine Culture Stat Lab 04/04/24 15:12 Completed Acetaminophen Tab [Tylenol ES Tab] Med 04/04/24 12:51 Discontinued 1,000 mg PO X1 ONE Ketorolac Inj [Toradol Inj] Med 04/04/24 12:51 Discontinued 30 mg IVP X1 ONE cefTRIAXone [Rocephin] Med 04/04/24 12:51 Discontinued 1,000 mg IV X1 ONE Vital Signs Vital signs: Vital Signs Temperature 102.1 F H 04/04/24 12:46 Pulse Rate 122 H 04/04/24 12:46 Respiratory Rate 18 04/04/24 12:46 Blood Pressure 133/78 H 04/04/24 12:46 Pulse Oximetry (%) 99 04/04/24 12:46 Oxygen Delivery Method Room Air 04/04/24 12:46 Urogenital - Female MDM Narrative MDM Narrative:: Denies abdominal pain. Denies pain to palpation to abdomen and pelvic area. chest x ray: Findings: Normal heart size No lobar pneumonia No pulmonary edema The osseous structures are intact with mild kyphosis dorsal spine Impression: No lobar pneumonia identified Influenza and COVID-negative. Labs show a white count of 9.1, hemoglobin 12.3 with a hematocrit of 37.4 platelet count of 214, BMP glucose of 139 lactic acid 0.8. Consulted [address] Cory GRISSOM. I let them know that patient not having any abdominal pain any abdominal or lower pelvic tenderness. He does not suspect endometriits at this time. He stated patient can follow-up with her [employer] [facility] next week. Come back to the emergency room if symptoms change or worsen. Patient had antibiotics ordered earlier by previous provider. Patient does not want antibiotics at this time. Patient data External records reviewed:: [facility] previous records Clinical information provided by:: patient Social determinants that could affect healthcare access:: none Patient has the following chronic illnesses:: none How is presenting disease/condition affected by chronic disease/condition?: no chronic disease Evaluation data The following diagnostics were reviewed and interpreted by me:: lab results and radiology exam(s) Lab and/or radiology exams considered but not ordered:: see note Interpretation Summary: see note Medications / Prescriptions Medications or Prescriptions considered but not ordered:: none Medication administrations:: Medication Administration History Discontinued Medications Acetaminophen (Acetaminophen 500 Mg Tablet) 1,000 mg PO X1 ONE Stop: 04/04/24 12:52 Last Admin: 04/04/24 12:57 Dose: 1,000 mg Documented By: DO Ceftriaxone Sodium (Ceftriaxone Sod Inj 1,000 Mg Vial) 1,000 mg IV X1 ONE Stop: 04/04/24 12:52 Last Admin: 04/04/24 15:36 Dose: Not Given Documented By: DO Non-Admin Reason: Cancelled by Provider Ketorolac Tromethamine (Ketorolac Inj 30 Mg/Ml Vial) 30 mg IVP X1 ONE Stop: 04/04/24 12:52 Last Admin: 04/04/24 15:36 Dose: Not Given Documented By: DO Non-Admin Reason: Cancelled by Provider see mar Consultations Consultation(s) initiated? (list below): No Diagnosis Urogenital Female Differential Diagnosis: urinary tract infection, dysmenorrhea and other (endometritis, uri) Most likely diagnosis given after review of the tests above:: see note Admission Indicated Admission indicated?: not indicated Admission Request Was there a request for admission?: No Disposition Plan Disposition Plan: Discharge Discharge Attestation Discharge Attestation: The patient and all family members were given an opportunity to ask questions and understood the discharge instructions. Discharge instructions specifically effects, indications for sooner follow up or return to the emergency department, and the expected course of current diagnosis. Patient condition: Stable Discharge Plan Plan Patient Disposition: HOME (Self Care) Patient condition on transfer: Stable Prescriptions/Referrals Referrals: No Primary/Family,Physician [Primary Care Provider] - In 1 week Problem List Clinical Impression: Fever, Upper respiratory infection, viral Patient/Caregiver Discharge Instructions Discharge Activity: activity as tolerated Education Materials: ED URI, Viral, No Abx (Adult) Additional Instructions: Please call [facility] on Saturday and make a follow-up appointment. Come back to the emergency room if symptoms change or worsen. Print Language: Italian Stand Alone Forms: Kassie Award Info., Patient Portal Info Letter PA/BUTTONHOLE FACER Supervising Physician PA/BUTTONHOLE FACER Supervising Physician: mallorie
[2024-04-04 15:39] LABS: Bilirubin,Urine Negative (Negative); Blood,Urine Negative (Negative); Clarity,Urine Clear (Clear/Hazy); Glucose, Urine Negative (Negative); Ketones,Urine Trace (Negative); Leukocyte Esterase,Urine Negative (Negative); Nitrite,Urine Negative (Negative); PH,Urine 6.5 (5.0-7.0); Protein,Urine Negative (Neg - Trace); Specific Gravity,Urine 1.006 (1.001-1.035); Squamous Epithelial Cell,Urine 2 /hpf (0-5); Urobilinogen,Urine Negative mg/dL (0.0-1.0); WBC,Urine 1 /hpf (0-5)
[2024-04-04 15:46] LABS: Color,Urine Lt-Yellow (Lt Yel-Yel)
[2024-04-04 16:13] VITALS: TEMP 37
== END 2024-04-04 16:53 | disposition home or self-care (01) ==
PROVIDERS: Physician Assistant; Emergency Provider Emergency Medicine
DX: J06.9 Acute upper respiratory infection, unspecified (principal)
CPT/HCPCS: 36415; 71046; 80053; 81001; 83605; 83690; 83880; 85025; 87040; 87086; 87400; 87811; 99283; A9270